=== PATIENT | male | born 1960 | race Caucasian/White ===

== ENCOUNTER 2017-04-06 17:09 | Emergency (ER) | payer OTHER ==
[~2017-04-06] VITALS: Ht 180.3 cm; Wt 88.5 kg
[~2017-04-06 17:09] MED LIST: ACET325 PO; FAMO20 PO; Naprosyn500 MG PO; Norco 5-325 Ta1 EACH PO; OXYACE5T PO
[2017-04-06] MEDS ORDERED: Norco 5-325 Ta1 EACH PO (19:29)
[2017-04-06] MEDS ORDERED: Robaxin500 MG PO (19:29)
[2017-04-06] MEDS ORDERED: IBUP800 PO (19:29)
== END 2017-04-06 19:34 | disposition home or self-care (01) ==
LOC: ER 17:09
DX: M54.2 Cervicalgia (principal); M79.642 Pain in left hand; Z90.49 Acquired absence of other specified parts of digestive tract; V53.5XXA Driver of pick-up truck or van injured in collision with car, pick-up truck or van in traffic accident, initial encounter; Z79.899 Other long term (current) drug therapy
CPT/HCPCS: 72040; 73130; 99283

== ENCOUNTER 2018-01-03 06:48 | Day surgery (SDC) | payer OTHER ==
[~2018-01-03] VITALS: Ht 177.8 cm; Wt 85.9 kg
[~2018-01-03 06:48] MED LIST changes: +IBUP800 PO; +Robaxin500 MG PO
== END 2018-01-03 09:10 | disposition home or self-care (01) ==
LOC: ORSCSDS 06:48
PROVIDERS: Surgery
PROC: 0DJD8ZZ Inspection of Lower Intestinal Tract, Via Natural or Artificial Opening Endoscopic (ICD-10-PCS; principal; 2018-01-03 08:00)
DX: Z12.11 Encounter for screening for malignant neoplasm of colon (principal); K64.8 Other hemorrhoids; K57.30 Diverticulosis of large intestine without perforation or abscess without bleeding; Z87.891 Personal history of nicotine dependence
CPT/HCPCS: J0330; J1980; J2405; J7120

== ENCOUNTER → 2020-12-20 | Outpatient (CLI) | payer OTHER ==
[2020-12-20 16:47] LABS: BASOPHILS ABSOLUTE AUTO 0.06 K/mm3 (0.00-0.23); BASOPHILS PERCENT AUTO 1 % (0-2); EOSINOPHILS ABSOLUTE AUTO 0.36 K/mm3 (0.00-0.68); EOSINOPHILS PERCENT AUTO 5 % (0-6); Hematocrit 46.2 % (37.0-53.0); Hemoglobin 15.2 g/dL (13.5-17.5); IMMATURE GRAN ABSOLUTE AUTO 0.03 K/mm3 (0.00-0.10); IMMATURE GRAN PERCENT AUTO 0 % (0-1); LYMPHOCYTES ABSOLUTE AUTO 2.14 K/mm3 (0.84-5.20); LYMPHOCYTES PERCENT AUTO 28 % (21-46); MONOCYTES ABSOLUTE AUTO 0.54 K/mm3 (0.16-1.47); MONOCYTES PERCENT AUTO 7 % (4-13); Mean Corpuscular HGB 28.1 pg (26.0-34.0); Mean Corpuscular HGB Conc 32.9 g/dL (31.5-36.5); Mean Corpuscular Volume 86 fL (80-100); Mean Platelet Volume 8.9 fL (9.1-12.4); NEUTROPHILS ABSOLUTE AUTO 4.63 K/mm3 (1.96-9.15); NEUTROPHILS PERCENT AUTO 60 % (41-73); Platelet Count 251 K/mm3 (150-400); RDW Coefficient Variation 12.8 % (11.7-14.2); RDW Standard Deviation 39.8 fL (35.1-46.3); White Blood Cell Count 7.76 K/mm3 (4.00-11.30)
[2020-12-20 16:58] LABS: Albumin, Blood 4.3 g/dL (3.4-5.0); Albumin/Globulin Ratio 1.2 (0.8-1.8); Bilirubin, Total 0.6 mg/dL (0.1-1.0); Bun/Creatinine Ratio 11.7 (12.0-20.0); Calcium, Blood 8.9 mg/dL (8.5-10.1); Creatinine, Blood 1.28 mg/dL (0.60-1.20); Globulin, Blood 3.7 g/dL (2.2-4.0); Potassium, Blood 3.9 mmol/L (3.5-5.5)
== END | disposition home or self-care (01) ==
LOC: LAB SHORT 16:42 → LAB 16:42
PROVIDERS: Physician Assistant
DX: R42 Dizziness and giddiness (principal)
CPT/HCPCS: 80053; 85025

== ENCOUNTER 2021-11-22 15:34 | Inpatient (IN) | payer OTHER ==
[~2021-11-22] VITALS: Ht 177.8 cm; Wt 90.8 kg
[2021-11-22 16:37] LABS: BASOPHILS ABSOLUTE AUTO 0.05 K/mm3 (0.00-0.23); BASOPHILS PERCENT AUTO 1 % (0-2); EOSINOPHILS ABSOLUTE AUTO 0.23 K/mm3 (0.00-0.68); EOSINOPHILS PERCENT AUTO 4 % (0-6); Hemoglobin 15.5 g/dL (13.5-17.5); IMMATURE GRAN ABSOLUTE AUTO 0.02 K/mm3 (0.00-0.10); IMMATURE GRAN PERCENT AUTO 0 % (0-1); LYMPHOCYTES ABSOLUTE AUTO 1.69 K/mm3 (0.84-5.20); LYMPHOCYTES PERCENT AUTO 29 % (21-46); MONOCYTES ABSOLUTE AUTO 0.56 K/mm3 (0.16-1.47); MONOCYTES PERCENT AUTO 9 % (4-13); Mean Corpuscular HGB 28.2 pg (26.0-34.0); Mean Corpuscular HGB Conc 33.7 g/dL (31.5-36.5); Mean Corpuscular Volume 84 fL (80-100); Mean Platelet Volume 8.6 fL (9.1-12.4); NEUTROPHILS ABSOLUTE AUTO 3.38 K/mm3 (1.96-9.15); NEUTROPHILS PERCENT AUTO 57 % (41-73); Platelet Count 246 K/mm3 (150-400); RDW Coefficient Variation 12.6 % (11.7-14.2); RDW Standard Deviation 38.2 fL (35.1-46.3); White Blood Cell Count 5.93 K/mm3 (4.00-11.30)
[2021-11-22 17:05] LABS: Albumin, Blood 4.2 g/dL (3.4-5.0); Albumin/Globulin Ratio 1.3 (0.8-1.8); Bilirubin, Total 0.7 mg/dL (0.1-1.0); Bun/Creatinine Ratio 13.4 (12.0-20.0); Calcium, Blood 9.3 mg/dL (8.5-10.1); Creatinine, Blood 1.12 mg/dL (0.60-1.20); Globulin, Blood 3.2 g/dL (2.2-4.0); Potassium, Blood 3.6 mmol/L (3.5-5.5); Total Protein, Blood 7.4 g/dL (6.4-8.2)
[2021-11-22] MEDS ORDERED: Aspir 8181 MG PO (18:05)
[2021-11-22 19:01] LABS: Anti-Xa UFH, PHA Monitoring <0.10 IU/mL; International Normalized Ratio 1.07; Prothrombin Time Results 11.2 Sec (9.7-11.5)
[2021-11-22 19:54] LABS: CHOL/HDL RATIO 5.9; Cholesterol 160 mg/dL (50-200); HDL Cholesterol 27 mg/dL (>39); LDL/HDL RATIO Unable to Calculate; Low Density Lipoprotein Chol Unable to Calculate mg/dL (0-110); Triglycerides 453 mg/dL (30-160); Very Low Density Lipoprot Chol Unable to Calculate mg/dL (6-32)
[2021-11-22 20:20] LABS: Influenza A, PCR NEGATIVE (NEGATIVE); Influenza B, PCR NEGATIVE (NEGATIVE); Resp Syncytial Virus, PCR NEGATIVE (NEGATIVE); SARS-Cov-2 (COVID-19) PCR, MMC NEGATIVE (NEGATIVE)
[2021-11-23 02:06] LABS: BASOPHILS ABSOLUTE AUTO 0.07 K/mm3 (0.00-0.23); BASOPHILS PERCENT AUTO 1 % (0-2); EOSINOPHILS ABSOLUTE AUTO 0.33 K/mm3 (0.00-0.68); EOSINOPHILS PERCENT AUTO 5 % (0-6); Hematocrit 43.2 % (37.0-53.0); Hemoglobin 14.8 g/dL (13.5-17.5); IMMATURE GRAN ABSOLUTE AUTO 0.01 K/mm3 (0.00-0.10); IMMATURE GRAN PERCENT AUTO 0 % (0-1); LYMPHOCYTES ABSOLUTE AUTO 2.36 K/mm3 (0.84-5.20); LYMPHOCYTES PERCENT AUTO 38 % (21-46); MONOCYTES PERCENT AUTO 10 % (4-13); Mean Corpuscular HGB 28.6 pg (26.0-34.0); Mean Corpuscular HGB Conc 34.3 g/dL (31.5-36.5); Mean Corpuscular Volume 83 fL (80-100); Mean Platelet Volume 8.9 fL (9.1-12.4); NEUTROPHILS ABSOLUTE AUTO 2.79 K/mm3 (1.96-9.15); NEUTROPHILS PERCENT AUTO 45 % (41-73); Platelet Count 224 K/mm3 (150-400); RDW Coefficient Variation 12.8 % (11.7-14.2); RDW Standard Deviation 38.9 fL (35.1-46.3); Red Blood Cell Count 5.18 M/mm3 (4.30-5.90); White Blood Cell Count 6.16 K/mm3 (4.00-11.30)
[2021-11-23 02:22] LABS: Bun/Creatinine Ratio 13.3 (12.0-20.0); Calcium, Blood 8.4 mg/dL (8.5-10.1); Creatinine, Blood 1.13 mg/dL (0.60-1.20); Potassium, Blood 3.5 mmol/L (3.5-5.5)
--- NOTE | 2021-11-23 05:18 | NUR ---
Assumed care of pt at 2102 as ER admit for obs. Independent in room. Reports labile CP of 2-5 out of 10 pain radiating to L shoulder. Resp WNL. SB on tele 40-50. VSS. Heparin running per emar. No acute changes. Will report to tani PAREKH.
--- NOTE | 2021-11-23 08:00 | NUR ---
ASSUMPTION OF CARE LEIGHA PAREKH AND SILVIA PAREKH ASSUMED CARE OF PATIENT AT 0700. REPORT TAKEN FROM STEPHANIA PAREKH. PATIENT WITH SB ON THE MONITOR WITH HR IN THE 50S. OTHER VITALS STABLE AT THIS TIME. PATIENT REPORTS CP 07/10, REFUSES MEDICATION FOR PAIN AT THIS TIME. PATIENT HAS BEEN NPO SINCE MIDNIGHT AND IS SCHEDULED FOR THE RAILROAD COMMISSIONER TODAY FOR AN ANGIO. PATIENT INDEPENDENT IN ROOM. CALL LIGHT IN REACH. AT BEDSIDE.
--- NOTE | 2021-11-23 09:17 | NUR ---
PATIENT UPDATE CALL RECEIVED FROM PHARMACY REGARDING HEPARIN GTT TITRATION. PATIENT TITRATED TO 13UNITS/KG/HR OR 23.1 MLS/HR FOR A WEIGHT OF 89 KG. LAB ORDER SCHEDULED FOR 1500 THIS AFTERNOON TO CHECK NEED FOR FURTHER TITRATION. HEPARIN GTT TITRATION VERIFIED BY JORDAN PAREKH.
--- NOTE | 2021-11-23 10:25 | NUR ---
PATIENT UPDATE OSCAR CHRISTOPHER TO BEDSIDE TO DISCUSS PLAN OF CARE WITH PATIENT. MD DISCUSSED THE NEED FOR THE PATIENT TO GO TO THE INTELLIGENT SYSTEMS ENGINEER TODAY FOR AN ANGIO. PATIENT WAS GIVEN EDUCATION ABOUT THE NEED FOR LIPITOR AND LIFESTYLE CHANGES TO HELP HIGH TRIGLYCERIDE LEVELS. MD ALSO PUT IN ORDER FOR NITRO PASTE FOR CHEST PAIN. PATIENT HAS PREVIOUSLY BEEN REFUSING NITRO SL TABLET FOR THIS RN AND PREVIOUS REPORTED RN'S. PATIENT VERBALIZED TO OSCAR CHRISTOPHER THAT HE WOULD BE WILLING TO TRY THE NITRO PASTE.
--- NOTE | 2021-11-23 18:01 | NUR ---
SHIFT SUMMARY PATIENT TAKEN TO GREEN INSPECTOR FOR ANGIO AT 1800. NO ACUTE CHANGES DURING THIS SHIFT. PATIENT WAS TITRATED TO 12U/KG/HR AT 1555 THIS AFTERNOON. PATIENT ORIGINALLY REFUSED NITRO SL TAB THIS AM FOR CHEST PAIN. PATIENT AGREED TO TRY NITRO PASTE WITH REPORTS OF HAVING NO CHEST PAIN AFTER APPLIED. VITALS STABLE WITH SINUS ELIZABETH ON THE MONITOR. PATIENT IS INDEPENDENT IN ROOM. PATIENT HAS BEEN NPO SINCE MIDNIGHT OF 11/23/21. HEPARIN HAS BEEN INFUSING WELL INTO LFA 20G IV. REPORT WILL BE GIVEN TO ONCOMING NURSE AT 1900.
--- NOTE | 2021-11-24 05:07 | NUR ---
Patient returned from computer lab assistant around 1944. 11cc air in TR band on R radial with 2 punctures, the most distal one was used. TR band fully recovered at 0000. C/D/I without a hematoma. BP slightly soft with SBP 90-100. Denies any CP/Pressure. Will report to daysnanci RN
[2021-11-24 05:35] LABS: BASOPHILS ABSOLUTE AUTO 0.05 K/mm3 (0.00-0.23); BASOPHILS PERCENT AUTO 1 % (0-2); EOSINOPHILS ABSOLUTE AUTO 0.26 K/mm3 (0.00-0.68); EOSINOPHILS PERCENT AUTO 4 % (0-6); Hematocrit 45.3 % (37.0-53.0); Hemoglobin 15.1 g/dL (13.5-17.5); IMMATURE GRAN ABSOLUTE AUTO 0.02 K/mm3 (0.00-0.10); IMMATURE GRAN PERCENT AUTO 0 % (0-1); LYMPHOCYTES ABSOLUTE AUTO 1.57 K/mm3 (0.84-5.20); LYMPHOCYTES PERCENT AUTO 24 % (21-46); MONOCYTES ABSOLUTE AUTO 0.53 K/mm3 (0.16-1.47); MONOCYTES PERCENT AUTO 8 % (4-13); Mean Corpuscular HGB 28.3 pg (26.0-34.0); Mean Corpuscular HGB Conc 33.3 g/dL (31.5-36.5); Mean Corpuscular Volume 85 fL (80-100); Mean Platelet Volume 8.8 fL (9.1-12.4); NEUTROPHILS ABSOLUTE AUTO 4.23 K/mm3 (1.96-9.15); NEUTROPHILS PERCENT AUTO 63 % (41-73); Platelet Count 243 K/mm3 (150-400); RDW Coefficient Variation 12.9 % (11.7-14.2); RDW Standard Deviation 39.6 fL (35.1-46.3); Red Blood Cell Count 5.34 M/mm3 (4.30-5.90); White Blood Cell Count 6.66 K/mm3 (4.00-11.30)
[2021-11-24 06:07] LABS: Bun/Creatinine Ratio 10.7 (12.0-20.0); Calcium, Blood 8.4 mg/dL (8.5-10.1); Creatinine, Blood 1.22 mg/dL (0.60-1.20); Potassium, Blood 3.9 mmol/L (3.5-5.5)
--- NOTE | 2021-11-24 08:49 | NUR ---
ASSUMPTION OF CARE LEIGHA PAREKH AND SILVIA PAREKH ASSUMED CARE OF PATIENT AT 0700. REPORT TAKEN FROM NEVA PAREKH. NO REPORTED ACUTE CHANGES DURING THE NIGHT. PATIENT'S VITALS STABLE. DENIES CHEST PAIN. MD ROBLES AT BEDSIDE CURRENTLY DISCUSSING PLAN OF CARE WITH PATIENT REGARDING DISCHARGE TODAY AND THE NEED FOR NEW MEDICATIONS SUCH PLAVIX DUE TO STENT PLACEMENT 11/23/21. PATIENT IS INDEPENDENT IN ROOM WITH [facility].
[2021-11-24] MEDS ORDERED: ATOR40TA PO (12:30)
[2021-11-24] MEDS ORDERED: CLOP75 PO (12:31)
[2021-11-24] MEDS ORDERED: Prinivil10 MG PO (12:32)
--- NOTE | 2021-11-24 13:18 | NUR ---
DISCHARGE NOTE PATIENT EDUCATED ON NEW MEDICATION PLAVIX, LIPITOR, AND LISINOPRIL. GAVE PATIENT PRINTED MED EDUCATION WELL VERBALLY EXPLAINED SIDE EFFECTS AND REASONS FOR MEDICATIONS. PATIENT EDUCATED ON RIGHT RADIAL SITE CARE AND LIFT/MOVEMENT RESTRICTIONS. PATIENT EDUCATED ON APPLYING PRESSURE IF BLEEDING OCCURS AND GOING TO THE EMERGENCY DEPARTMENT IF BLEEDING OCCURS. PATIENT GIVEN PRINTED INSTRUCTIONS ABOUT RIGHT RADIAL SITE CARE. PATIENT VERBALIZED UNDERSTANDING OF EDUCATION. PATIENT SPOUSE WAS PRESENT FOR EDUCATION AND VERBALIZED UNDERSTANDING WELL. PATIENT'S VITALS WERE STABLE WITH NO COMPLAINTS OF CHEST PAIN. PATIENT DRESSED HIMSELF AND HAD IV REMOVED WITH CATHETER INTACT. PATIENT TAKEN TO HOSPITAL ENTRANCE VIA WHEELCHAIR. PATIENT AND SPOUSE WALKED TO CARE WITHOUT ANY VISIBLE SIGN/SYMPTOMS OF DIFFICULTY.
== END 2021-11-24 14:02 | disposition home or self-care (01) | DRG 247 ==
LOC: ER 15:34 → PCU 15:35 → MEDS 15:35 → ER 15:35 → MEDS 21:10 → PCU 21:10
PROVIDERS: Family Medicine; Student in an Organized Health Care Education/Training Program; ADMIT Family Medicine
PROC: 027034Z Dilation of Coronary Artery, One Artery with Drug-eluting Intraluminal Device, Percutaneous Approach (ICD-10-PCS; principal; 2021-11-23)
PROC: 4A023N7 Measurement of Cardiac Sampling and Pressure, Left Heart, Percutaneous Approach (ICD-10-PCS; 2021-11-23)
PROC: B2111ZZ Fluoroscopy of Multiple Coronary Arteries using Low Osmolar Contrast (ICD-10-PCS; 2021-11-23)
PROC: B2151ZZ Fluoroscopy of Left Heart using Low Osmolar Contrast (ICD-10-PCS; 2021-11-23)
PROC: B24BZZ3 Ultrasonography of Heart with Aorta, Intravascular (ICD-10-PCS; 2021-11-23)
DX: I20.0 Unstable angina (principal); Z20.822 Contact with and (suspected) exposure to COVID-19; E78.1 Pure hyperglyceridemia; Z90.49 Acquired absence of other specified parts of digestive tract; Z98.890 Other specified postprocedural states; Z87.891 Personal history of nicotine dependence; Z79.82 Long term (current) use of aspirin
CPT/HCPCS: 0241U; 36415; 71045; 76937; 80048; 80053; 80061; 84484; 85025; 85347; 85520; 85610; 93005; 93010; 93458; 96365; 99152; 99153; 99285-25; A9270; C1725; C1769; C1874; C1887; C1894; C9600; J1644; J2250; J3010; J7030; J7040; Q9967